=== PATIENT | female | born 1980 | race African-American/Black ===

== ENCOUNTER 2024-07-04 12:05 | Emergency (ER) | payer OTHER ==
[2024-07-04] MEDS ORDERED: Acetaminophen 500 MG TAB ONE (12:23)
== END 2024-07-04 13:00 | disposition home or self-care (01) ==
LOC: MADERS 12:05
DX: B34.9 Viral infection, unspecified (principal)
CPT/HCPCS: 87428; 99283

== ENCOUNTER 2025-03-26 03:42 | Emergency (ER) | payer OTHER ==
[2025-03-26] MEDS ORDERED: Ondansetron PF 4 MG/2 ML Vial ONE (04:24)
[2025-03-26] MEDS ORDERED: Ketorolac Tromethamine 30 MG (1 mL) VIAL ONE (04:24)
[2025-03-26 05:02] LABS: ALT (SGPT) 33 U/L (Less than 34); AST (SGOT) 51 U/L (11-34); Albumin 4.1 g/dL (3.1-4.5); Alkaline Phosphatase 41 U/L (40-110); Anion Gap 15 mmol/L (10-20); BUN (Urea Nitrogen) 11 mg/dL (7.0-18.7); Bilirubin, Total 0.5 mg/dL (0.3-1.2); Calc. Creatinine Clearance 0 mL/min (70-130); Calcium 9.6 mg/dL (7.8-10.44); Carbon Dioxide 23 mmol/L (22-29); Chloride 104 mmol/L (98-107); Globulin 3.0 g/dL (2.4-3.5); Glucose 118 mg/dL (70-105); Potassium 3.9 mmol/L (3.5-5.1); Sodium 138 mmol/L (136-145)
[2025-03-26 05:04] LABS: Hematocrit 32.9 % (36.0-47.0); Hemoglobin 11.0 g/dL (12.0-16.0); MDiff Complete? YES; Mean Corpuscular Hemoglobin 29.7 pg (27.0-31.0); Mean Corpuscular Volume 89.4 fl (78.0-98.0); Platelet Count 236 10x3/uL (130-400); Red Blood Cell (RBC) Count 3.69 mill/uL (4.20-5.40); White Blood Cell (WBC) Count 18.3 10x3/uL (4.8-10.8)
[2025-03-26 05:31] LABS: Glucose, Urine (Dipstick) Negative (Negative); Leukocyte Negative (Negative); Protein, Urine (Dipstick) Negative (Neg-Trace); Specific Gravity, Urine 1.020 (1.005-1.030)
[2025-03-26 05:32] LABS: CAUTI Indications for Culture Pelvic or flank pain; RBC/HPF None Seen HPF (0-3)
[2025-03-26 05:33] LABS: Urine Culture Reflex No No
[2025-03-26] MEDS ORDERED: Acetaminophen 500 MG TAB ONE (07:47)
== END 2025-03-26 09:39 | disposition short-term general hospital (02) ==
LOC: MADERS 03:42
DX: K85.90 Acute pancreatitis without necrosis or infection, unspecified (principal)
CPT/HCPCS: 74176; 80053; 81001; 83605; 83690; 85025; 87081; 87400; 87426; 87430; J1885; J2405; J2543; J7030